=== PATIENT | female | born 1980 | race American Indian/Alaskan Native ===

== ENCOUNTER 2016-09-24 13:47 | Outpatient (CLI) | payer BC ==
--- NOTE | 2016-09-25 11:07 | Echocardiography Report ---
Transthoracic Echocardiogram Indication: Cardiomyopathy BP: 110/63 Conclusions *Global left ventricular systolic function is normal.The Mid-Septal wall appears akinetic. *The estimated ejection fraction is 50-55%. *The right ventricular global systolic function is normal. *There is no evidence of aortic regurgitation. *There is no evidence of mitral regurgitation. *There is no evidence of tricuspid valve regurgitation. *There is no evidence of pulmonic regurgitation. Findings Left Ventricle: The left ventricular chamber size is normal. Global left ventricular systolic function is normal.The Mid-Septal wall appears akinetic. The estimated ejection fraction is 50-55%. Normal left ventricular diastolic filling is observed. Left Atrium: The left atrium is normal in size with no visual thrombus identified. Right Ventricle: The right ventricular cavity size is normal. The right ventricular global systolic function is normal. Right Atrium: The right atrium appears normal. The interatrial septum appears normal. Aortic Valve: The aortic valve structure is normal. There is no evidence of aortic regurgitation. There is no evidence of aortic stenosis. Mitral Valve: The mitral valve leaflets appear normal. There is no evidence of mitral regurgitation. There is no evidence of mitral stenosis. Tricuspid Valve: The tricuspid valve leaflets are normal. There is no evidence of tricuspid valve regurgitation. There is no tricuspid stenosis. Pulmonic Valve: The pulmonic valve appears normal. There is no evidence of pulmonic regurgitation. There is no pulmonic stenosis. Pericardium: There is no pericardial effusion. Aorta: There is no dilatation of the ascending aorta. Venous: The inferior vena cava appears normal in size. Measurements Chambers MM Name Value Normal Range Ao root diameter (MM) 2.6 cm (2 - 3.7) LA dimension (AP) MM 4 cm (1.9 - 4) LA:Ao ratio (MM) 1.54 ratio - AV cusp separation (MM) 1.6 cm (1.5 - 2.6) Chambers 2D Name Value Normal Range IVSd (2D) 1.08 cm (0.6 - 1.1) LVPWd (2D) 1.09 cm (0.6 - 1.1) IVS:LVPW ratio (2D) 0.99 ratio - LVIDd (2D) 4.62 cm (3.7 - 5.6) LVIDs (2D) 3.35 cm (2 - 3.8) LV FS (Teichholz) (2D) 27.5 % - LV FS (cube) (2D) 27.5 % - EF Teichholz (2D) 53.4 % - LA dimension (AP) 2D 3.9 cm (1.9 - 4) Volumes/Mass Name Value Normal Range LA ESV SP 4CH (MOD) 40 ml - LA ESV SP 2CH (MOD) 35 ml - LA ESV BP (MOD) 38 ml - LA ESV BP (MOD) index 18.7 ml/m2 - Diastolic/Systolic Function Name Value Normal Range MV E-wave Vmax 0.46 m/sec - MV deceleration time 116 msec - MV A-wave Vmax 0.74 m/sec - MV E:A ratio 0.6 ratio - LV septal e' Vmax 0.08 m/sec - LV lateral e' Vmax 0.11 m/sec - LV E:e' septal ratio 5.8 ratio - LV E:e' lateral ratio 4.2 ratio - Aortic Valve Name Value Normal Range AV VTI 26 cm - AV mean gradient 5 mmHg - LVOT diameter 2.1 cm - LVOT VTI 17.5 cm - LVOT mean gradient 3 mmHg - SV LVOT 61 ml - JENNI (continuity VTI) 2.33 cm2 - Mitral Valve Name Value Normal Range MV PHT 45 msec - MR Vmax 4.29 m/sec - MVA (PHT) 4.89 cm2 - Tricuspid Valve Name Value Normal Range TR Vmax 3.03 m/sec - TR peak gradient 37 mmHg - Pulmonic Valve/Qp:Qs Name Value Normal Range PV Vmax 1.02 m/sec - PV peak gradient 4 mmHg - PV acceleration time 148 msec -
== END 2016-09-24 13:48 | disposition home or self-care (01) ==
LOC: ECHO 13:47
PROVIDERS: ATTEND Internal Medicine Cardiovascular Disease
DX: Z86.79 Personal history of other diseases of the circulatory system (principal)
CPT/HCPCS: 93306